=== PATIENT | female | born 2000 | race Caucasian/White ===

== ENCOUNTER → 2022-07-01 | Outpatient (CLI) | payer MEDICAID, SELFPAY ==
[2022-07-01 16:35] LABS: Vitamin B12 565 pg/mL (211-911)
[2022-07-01 16:45] LABS: AST(SGOT) 16 U/L (15-37); Alanine Aminotransfer ALT/SGPT 28 U/L (13-56); Albumin, Serum 3.8 g/dL (3.2-5.0); Alkaline Phosphatase 108 U/L (45-117); Anion Gap 3 (5-15); BUN 8 mg/dL (7-18); BUN/Creat Ratio 12.7 RATIO (10-20); Calcium,Total 9.3 mg/dL (8.5-10.1); Chloride 105 mmol/L (98-107); Creatinine, Serum 0.63 mg/dL (0.55-1.02); EST Glomerular Filtration Rate 126 mL/min (>60); Est Glom Filt Rate - Afr Amer 153 mL/min (>60); Ferritin 43 ng/mL (8-252); Glucose 90 mg/dL (74-106); Iron 43 ug/dL (50-170); Iron Binding Capacity,Total 358 ug/dL (250-450); Protein, Total 7.8 g/dL (6.4-8.2); Sodium Level 138 mmol/L (136-145); Thyroid Stim Hormone (TSH) 2.09 uIU/mL (0.358-3.74)
== END | disposition home or self-care (01) ==
DX: Z00.00 Encounter for general adult medical examination without abnormal findings (principal); F41.8 Other specified anxiety disorders; R63.5 Abnormal weight gain; R20.2 Paresthesia of skin; E61.1 Iron deficiency
CPT/HCPCS: 36415; 80053; 82607; 82728; 82746; 83540; 83550; 84443